=== PATIENT | male | born 1970 | race Caucasian/White ===

== ENCOUNTER 2017-03-17 20:37 | Emergency (ER) | payer OTHER ==
--- NOTE | 2017-03-17 22:00 | DIAGNOSTIC IMAGING REPORT ---
PROCEDURE: XR CHEST 1 VIEW INDICATION: CHEST PAIN TECHNIQUE: Single view chest. 2111 hours COMPARISON: None. FINDINGS: The cardiomediastinal contour and central vasculature are normal. Retrocardiac density. No visible effusion or pneumothorax. The osseous structures are intact. IMPRESSION: 1. Suspected retrocardiac density. Consider PA and lateral radiograph when the patient is able.
--- NOTE | 2017-03-17 23:54 | ED NURSING NOTES ---
Clinical Report - Nurses [facility] [address] [place] [address] 03/17/2017 20:37 Patient: LYDIA KELLOGG TRIAGE Triage time 20:30. Acuity: LEVEL 3. Chief Complaint: CHEST PAIN. Alert. No acute distress. --20:45 Lucy Wasserman R.N. 20:30 03/17/17. BP: 165/92. HR: 109. RR: 20. O2 saturation: 100% on room air. Temp: 98.1 F. --20:45 Lucy Wasserman R.N. 20:30 03/17/17. BP: 165/92. HR: 109. RR: 20. O2 saturation: 100% on room air. Temp: 98.1 F. --20:45 Lucy Wasserman R.N. Weight: 86.1 kg stated. Height/Length: 70 inches Per Patient. BMI: 27.2. --20:42 Lucy Wasserman R.N. Medications Simvastatin Oral 40 mg, daily. --20:32 Lucy Wasserman R.N. Asa 81mg day. --20:32 Lucy Wasserman R.N. NIFEdipine Oral 30 mg, daily. --20:33 Lucy Wasserman R.N. Omeprazole Oral 20 mg, daily. --20:33 Lucy Wasserman R.N. Medication/allergy information source: the patient and patient's family. --20:45 Lucy Wasserman R.N. Allergies No Known Drug Allergy. --20:34 Lucy Wasserman R.N. History Arrived by private vehicle, and accompanied by family. Primary physician ([facility]). Onset. (2 hours ago). No difficulty breathing, sweating episodes or nausea. Treatment SOUND PERSON: None. PAST MEDICAL HX: Immunizations: status is unknown. SOCIAL HX: Occasional alcohol use. No drug use. FALL RISK ASSESSMENT: Fall risk assessment completed. No fall risk identified. NUTRITIONAL RISK ASSESSMENT: The nutritional risk assessment revealed no deficiencies. FUNCTIONAL ASSESSMENT: Functional assessment: no impairments noted. LEARNING NEEDS ASSESSMENT: The learning needs assessment revealed no barriers. SKIN INTEGRITY ASSESSMENT: Skin integrity risk assessment completed. No skin integrity risk identified. --20:45 Lucy Wasserman R.N. PROBLEMS: Nephrolithiasis. Hypertension. Hypercholesterolemia. Chest Pain. --20:35 Lucy Wasserman R.N. Ureterolithiasis. --20:44 Lucy Wasserman R.N. ADDITIONAL SURGERIES: Kidney stone retrival . --20:44 Lucy Wasserman R.N. Interventions ID band on patient. To room. --20:45 Lucy Wasserman R.N. PHYSICAL ASSESSMENT To room via wheelchair. Patient gowned. GENERAL / NEURO / PSYCH: Alert. Oriented X 4. Appears in pain and anxious. HEENT: Mucous membranes are pink. RESPIRATORY: Respirations not labored. CVS: Cardiac rhythm: sinus tachycardia. GI / : Abdomen nontender. EXTREMITIES: No lower extremity edema. SKIN: Skin is warm and dry. Normal skin turgor. Skin is non-tender. --20:46 Lucy Wasserman R.N. NURSING PROGRESS NOTES Oxygen administered by nasal cannula at 2 liters. vice president of instruction, pulse oximeter and NIBP monitor placed on patient; prison guard- Lead II. Patient gowned. Head of bed elevated. Two patient identifiers checked. Call light placed in reach. Side rails up x 2. Bed placed in lowest position. Brakes of bed on. Patient ready for evaluation- chart flagged. --20:46 Lucy Wasserman R.N. <<STRICKEN ENTRY-- EKG time: (). EKG was performed by a nurse and shown to the ED physician. --20:46 Lucy Wasserman R.N. --END STRIKE>> Correction --20:47 Lucy Wasserman R.N. EKG time: (2036). EKG was performed by a nurse and shown to the ED physician. --20:47 Lucy Wasserman R.N. 20:30 03/17/2017 Site #1 started via IV in the right antecubital space with an 18g angiocath, with aseptic technique and good blood return; one attempt. Blood drawn: rainbow set. Labeled in the presence of the patient and sent to the lab. Saline lock flushed with 10 mL saline. --21:11 Lucy Wasserman R.N. 21:00 03/17/2017 mylanta * PO 30 --21:12 Lucy Wasserman R.N. 21:00 03/17/2017 lido viscous * PO 15mg --21:13 Lucy Wasserman R.N. 21:04 03/17/2017 Started bag #1 1000 mL IV Fluids IV NS (Saline); at 1000 mL/hr over 1 hour(s) via site #1 via IV pump. Allergies verified and confirmed 5 rights. IV patency established. IV site checked: no pain, redness, or swelling. IV flushed thoroughly pre- and post-medication administration. --21:14 Lucy Wasserman R.N. 21:03/17/2017 Morphine IVP 2 mg given over 1 minute(s) via site #1. Allergies verified, confirmed 5 rights and sedative warning given to the patient. IV patency established. IV site checked: no pain, redness, or swelling. IV flushed thoroughly pre- and post-medication administration. IVP given by RN. --21:15 Lucy Wasserman R.N. Spouse at bedside. --21:15 Lucy Wasserman R.N. Patient ID band checked for patient name: patient confirmed. Instructions provided to collect clean catch urine and patient verbalized understanding. Clean catch urine collected with return of yellow-colored clear urine; odor is normal; sample sent to lab for urinalysis and culture. Specimen labeled in the presence of the patient (Voided 600ml urine, using a urinal). --21:35 Lucy Wasserman R.N. 22:17 03/17/2017 IV Fluids IV NS Bag Change: bag #1 infused. Total amount infused: 1000. STARTED bag #2 (1000 mL) at 1000 mL/hr via IV pump. Confirmed 5 rights. IV patency established. IV site checked: no pain, redness, or swelling. IV flushed thoroughly. --22:17 Lucy Wasserman R.N. Care transferred and report given (Soha GURROLA). --23:27 Noelle Cedillo R.N. DISPOSITION / DISCHARGE 00:27 03/18/2017 IV Fluids IV NS Discontinued: bag #1 completed upon discharge. Total amount infused: 1000 mL. IV patency established. IV site checked: no pain, redness, or swelling. IV flushed thoroughly. --00:27 Soha Hastings R.N. 00:28 03/18/2017 Site #1 removed upon discharge. Catheter intact. Manual pressure and bandage applied. --00:28 Soha Hastings R.N. Departure time: 0027. Condition at departure: improved and stable. No learning barriers present. Discharge instructions provided and reviewed with the patient and spouse. Patient verbalized understanding. Written instructions provided in [place]. The patient was discharged home and accompanied by spouse. He left the Emergency Department ambulatory and via private vehicle. Spouse driving. --00:29 Soha Hastings R.N. 00:27 03/18/17. BP: 133/86 taken on the left arm, while lying. HR: 113 (regular and tachycardic). RR: 18 (regular and unlabored). O2 saturation: 100%. Temp: deferred. Pain level now: 0/10. --00:29 Soha Hastings R.N. Locked/Released at 03/18/2017 0:29 by Soha Hastings R.N.
--- NOTE | 2017-03-17 23:54 | ED NURSING NOTES ---
Clinical Report - Nurses [facility] [address] [place] [address] 03/17/2017 20:37 Patient: LYDIA KELLOGG TRIAGE Triage time 20:30. Acuity: LEVEL 3. Chief Complaint: CHEST PAIN. Alert. No acute distress. --20:45 Lucy Wasserman R.N. 20:30 03/17/17. BP: 165/92. HR: 109. RR: 20. O2 saturation: 100% on room air. Temp: 98.1 F. --20:45 Lucy Wasserman R.N. 20:30 03/17/17. BP: 165/92. HR: 109. RR: 20. O2 saturation: 100% on room air. Temp: 98.1 F. --20:45 Lucy Wasserman R.N. Weight: 86.1 kg stated. Height/Length: 70 inches Per Patient. BMI: 27.2. --20:42 Lucy Wasserman R.N. Medications Simvastatin Oral 40 mg, daily. --20:32 Lucy Wasserman R.N. Asa 81mg day. --20:32 Lucy Wasserman R.N. NIFEdipine Oral 30 mg, daily. --20:33 Lucy Wasserman R.N. Omeprazole Oral 20 mg, daily. --20:33 Lucy Wasserman R.N. Medication/allergy information source: the patient and patient's family. --20:45 Lucy Wasserman R.N. Allergies No Known Drug Allergy. --20:34 Lucy Wasserman R.N. History Arrived by private vehicle, and accompanied by family. Primary physician ([facility]). Onset. (2 hours ago). No difficulty breathing, sweating episodes or nausea. Treatment TRACK FITTER: None. PAST MEDICAL HX: Immunizations: status is unknown. SOCIAL HX: Occasional alcohol use. No drug use. FALL RISK ASSESSMENT: Fall risk assessment completed. No fall risk identified. NUTRITIONAL RISK ASSESSMENT: The nutritional risk assessment revealed no deficiencies. FUNCTIONAL ASSESSMENT: Functional assessment: no impairments noted. LEARNING NEEDS ASSESSMENT: The learning needs assessment revealed no barriers. SKIN INTEGRITY ASSESSMENT: Skin integrity risk assessment completed. No skin integrity risk identified. --20:45 Lucy Wasserman R.N. PROBLEMS: Nephrolithiasis. Hypertension. Hypercholesterolemia. Chest Pain. --20:35 Lucy Wasserman R.N. Ureterolithiasis. --20:44 Lucy Wasserman R.N. ADDITIONAL SURGERIES: Kidney stone retrival . --20:44 Lucy Wasserman R.N. Interventions ID band on patient. To room. --20:45 Lucy Wasserman R.N. PHYSICAL ASSESSMENT To room via wheelchair. Patient gowned. GENERAL / NEURO / PSYCH: Alert. Oriented X 4. Appears in pain and anxious. HEENT: Mucous membranes are pink. RESPIRATORY: Respirations not labored. CVS: Cardiac rhythm: sinus tachycardia. GI / : Abdomen nontender. EXTREMITIES: No lower extremity edema. SKIN: Skin is warm and dry. Normal skin turgor. Skin is non-tender. --20:46 Lucy Wasserman R.N. NURSING PROGRESS NOTES Oxygen administered by nasal cannula at 2 liters. width stripper, pulse oximeter and NIBP monitor placed on patient; cardiac exercise physiologist- Lead II. Patient gowned. Head of bed elevated. Two patient identifiers checked. Call light placed in reach. Side rails up x 2. Bed placed in lowest position. Brakes of bed on. Patient ready for evaluation- chart flagged. --20:46 Lucy Wasserman R.N. <<STRICKEN ENTRY-- EKG time: (). EKG was performed by a nurse and shown to the ED physician. --20:46 Lucy Wasserman R.N. --END STRIKE>> Correction --20:47 Lucy Wasserman R.N. EKG time: (2036). EKG was performed by a nurse and shown to the ED physician. --20:47 Lucy Wasserman R.N. 20:30 03/17/2017 Site #1 started via IV in the right antecubital space with an 18g angiocath, with aseptic technique and good blood return; one attempt. Blood drawn: rainbow set. Labeled in the presence of the patient and sent to the lab. Saline lock flushed with 10 mL saline. --21:11 Lucy Wasserman R.N. 21:00 03/17/2017 mylanta * PO 30 --21:12 Lucy Wasserman R.N. 21:00 03/17/2017 lido viscous * PO 15mg --21:13 Lucy Wasserman R.N. 21:04 03/17/2017 Started bag #1 1000 mL IV Fluids IV NS (Saline); at 1000 mL/hr over 1 hour(s) via site #1 via IV pump. Allergies verified and confirmed 5 rights. IV patency established. IV site checked: no pain, redness, or swelling. IV flushed thoroughly pre- and post-medication administration. --21:14 Lucy Wasserman R.N. 21:03/17/2017 Morphine IVP 2 mg given over 1 minute(s) via site #1. Allergies verified, confirmed 5 rights and sedative warning given to the patient. IV patency established. IV site checked: no pain, redness, or swelling. IV flushed thoroughly pre- and post-medication administration. IVP given by RN. --21:15 Lucy Wasserman R.N. Spouse at bedside. --21:15 Lucy Wasserman R.N. Patient ID band checked for patient name: patient confirmed. Instructions provided to collect clean catch urine and patient verbalized understanding. Clean catch urine collected with return of yellow-colored clear urine; odor is normal; sample sent to lab for urinalysis and culture. Specimen labeled in the presence of the patient (Voided 600ml urine, using a urinal). --21:35 Lucy Wasserman R.N. 22:17 03/17/2017 IV Fluids IV NS Bag Change: bag #1 infused. Total amount infused: 1000. STARTED bag #2 (1000 mL) at 1000 mL/hr via IV pump. Confirmed 5 rights. IV patency established. IV site checked: no pain, redness, or swelling. IV flushed thoroughly. --22:17 Lucy Wasserman R.N. Care transferred and report given (Soha GURROLA). --23:27 Noelle Cedillo R.N. DISPOSITION / DISCHARGE 00:27 03/18/2017 IV Fluids IV NS Discontinued: bag #1 completed upon discharge. Total amount infused: 1000 mL. IV patency established. IV site checked: no pain, redness, or swelling. IV flushed thoroughly. --00:27 Soha Hastings R.N. 00:28 03/18/2017 Site #1 removed upon discharge. Catheter intact. Manual pressure and bandage applied. --00:28 Soha Hastings R.N. Departure time: 0027. Condition at departure: improved and stable. No learning barriers present. Discharge instructions provided and reviewed with the patient and spouse. Patient verbalized understanding. Written instructions provided in [place]. The patient was discharged home and accompanied by spouse. He left the Emergency Department ambulatory and via private vehicle. Spouse driving. --00:29 Soha Hastings R.N. 00:27 03/18/17. BP: 133/86 taken on the left arm, while lying. HR: 113 (regular and tachycardic). RR: 18 (regular and unlabored). O2 saturation: 100%. Temp: deferred. Pain level now: 0/10. --00:29 Soha Hastings R.N. Locked/Released at 03/18/2017 0:29 by Soha Hastings R.N.
--- NOTE | 2017-03-17 23:54 | ED CLINICAL REPORT ---
Clinical Report - Physicians/Mid Levels [facility] [address] [place] [place] [address] 03/17/2017 20:37 Patient: LYDIA KELLOGG Time Seen: 2046. Arrived- By private vehicle. Historian- patient and spouse. HISTORY OF PRESENT ILLNESS Chief Complaint: CHEST PAIN. At its maximum, severity described as moderate. When seen in the E.D., severity described as moderate. Modifying factors- (worsened with deep breath or moving of the left arm). Not relieved by anything. It is described as sharp and it is described as located in the left chest area. No radiation. This started today 2 hours ago and is still present (unchanged). It was abrupt in onset and has been constant but is not gone now. Onset during moderate exertion. No nausea, vomiting, difficulty breathing or diaphoresis. (started while working out in the yard.). No additional chest pain. (no recent injury, surgery, trauma, hx of DVT, PE. no leg swelling.). Similar symptoms previously: None. Recent medical care: Not recently seen/assessed. REVIEW OF SYSTEMS The patient has had skin rash. All systems otherwise negative, except as recorded above. PAST HISTORY See nurses notes. Denies the following risk factors for DVT/PE - history of DVT and pulmonary embolism, recent surgery, recent CO and congestive heart failure. Denies the following risk factors for DVT/PE - cancer, clotting disorder, estrogens, obesity and immobility. Denies the following risk factors for DVT/PE - advanced in age and vena cava filter. SOCIAL HISTORY Never smoker. Occasional alcohol use. No drug use. No recent travel. Is a local resident. FAMILY HISTORY No history of heart disease. ADDITIONAL NOTES The nursing notes have been reviewed. PHYSICAL EXAM Vital Signs: 03/17/2017 20:30 BP: 165/92. HR: 109. RR: 20. O2 saturation: 100%. Temp: 98.1 F. Hypertensive. Oxygen saturation normal. Appearance: Alert. Oriented X3. No acute distress. Eyes: Pupils equal, round and reactive to light. Eyes normal inspection. ENT: Ears normal. Nose normal. Pharynx normal. Neck: Normal inspection. Neck supple. CVS: Normal heart rate and rhythm. Heart sounds normal. Pulses normal. Respiratory: No respiratory distress. Breath sounds normal. Chest nontender. No rales, rhonchi or wheezes. Abdomen: Soft and nontender. Bowel sounds normal. Back: Normal external inspection. Skin: Skin warm and dry. Normal skin color. No rash. Normal skin turgor. Extremities: Extremities exhibit normal ROM. No lower extremity edema. Neuro: Oriented X 3. No motor deficit. No sensory deficit. LABS, X-RAYS, AND EKG EKG: Tachycardia. Normal P waves. Normal JUAN. Normal QRS complex. Normal axis. Normal ST and T waves, QT and QTc. The study has been interpreted contemporaneously. The study has been independently viewed by me. The EKG appears to be a good tracing. Chest X-ray: No acute disease. Normal lung markings present. Normal heart size. Mediastinum normal. Great vessels normal. Soft tissues normal. No infiltrate. No fracture. No bony lesion present. Views: AP (portable). Technique: good. The X-rays were independently viewed by me and interpreted contemporaneously by me. Laboratory Tests: CBC w Diff: (LION: 03/17/2017 21:00) ( MsgRcvd 03/17/2017 21:34) Final results Test Result Flag Units (Reference) WHITE BLOOD COUNT 8.9 K/uL (4.5-11.5) RED BLOOD COUNT 5.53 M/uL (4.50-5.90) HEMOGLOBIN 15.7 gm/dL (13.5-17.5) HEMATOCRIT 46.8 % (41.0-53.0) MEAN CELL VOLUME 85 fL (80-100) MEAN CORPUSCULAR HGB 28 pg (26-34) MEAN CORPUSCULAR HGB CONC 34 g/dL (31-37) RED CELL DISTRIBUTION WIDTH 13.1 % (11.6-14.8) PLATELET COUNT 300 K/uL (150-400) NEUTROPHIL % 50.6 % (50-75) LYMPH % 39.4 % (25-40) MONO % 7.8 % (3-14) EOSINOPHIL % 1.7 % (0-4) BASOPHIL % 0.5 % (0-2) PT with INR: (LION: 03/17/2017 21:00) ( [facility] 03/17/2017 21:44) Final results Test Result Flag Units (Reference) INR 0.9 (0.8-1.2) Low Intensity Therapy: INR 1.5-2.0 PT range 18.5-23.1Mod.Intensity Therapy: INR 2.0-3.0 PT range 23.1-31.5High Intensity Therapy: INR 2.5-3.5 PT range 27.4-35.5High Intensity Therapy 2: INR 3.0-4.0 PT range 31.5-39.3 D-DIMER QUANTITATIVE 0.34 ug/mLFEU (0.27-0.52) The primary value of this quantitative assay relates toits negative predictive value (i.e. exclusion) of pulmonaryembolism/deep vein thrombosis/DIC.Elevated levels of d-dimer may also occur with:, age, cancer, inflammation, liver disease,post-op, infection, hematoma, coronary disease, peripheralarteriopathy, bleeding disorders and thrombolytic treatment.Results should be correlated with other clinical andradiological data.Testing Methodology: Latex Immunoassay Troponin-I: (LION: 03/17/2017 23:00) ( [facility] 03/17/2017 23:39) Final results Test Result Flag Units (Reference) TROPONIN I <0.05 L ng/mL (0.00-1.5) TROPONIN REFERENCE RANGE:<0.1 NEGATIVE0.1-1.5 INDETERMINANT>1.5 POSITIVE Troponin-I: (LION: 03/17/2017 21:00) ( [facility] 03/17/2017 22:11) Final results Test Result Flag Units (Reference) TROPONIN I <0.05 L ng/mL (0.00-1.5) TROPONIN REFERENCE RANGE:<0.1 NEGATIVE0.1-1.5 INDETERMINANT>1.5 POSITIVE Ethyl Alcohol: (LION: 03/17/2017 21:00) ( [facility] 03/17/2017 22:27) Final results Test Result Flag Units (Reference) ETHYL ALCOHOL 63 H mg/dL (3-10) CMP: (LION: 03/17/2017 21:00) ( MsgRcvd 03/17/2017 21:56) Final results Test Result Flag Units (Reference) GLUCOSE 100 mg/dL (70-110) BUN 10 mg/dL (7-18) CREATININE 0.9 mg/dL (0.6-1.3) Estimated GFR >60 mL/min Estimated GFR- >60 mL/min Note: Persistent reduction over 3 months in eGFR<60 mL/min/1.73 m2 defines CKD. Patients with eGFR values>=60 mL/min/1.73 m2 may also have CKD if evidence ofpersistent proteinuria. Additional information may be foundat www.kidney.org. SODIUM 146 H mmol/L (136-145) POTASSIUM 3.5 mmol/L (3.5-5.1) CHLORIDE 105 mmol/L (98-107) CARBON DIOXIDE 27 mmol/L (21-32) CALCIUM 9.4 mg/dL (8.5-10.1) TOTAL PROTEIN 8.5 H g/dL (6.4-8.2) ALBUMIN 4.2 g/dL (3.3-5.0) BILIRUBIN, TOTAL 0.4 mg/dL (0.0-1.0) ALKALINE PHOSPHATASE 82 U/L (46-116) AST (SGOT) 29 U/L (15-37) ALT (SGPT) 49 U/L (12-78) . Pulse Oximetry: 03/17/2017 20:30 O2 saturation: 100%. (FIO2 - room air). Interpretation: normal. PROGRESS AND PROCEDURES Course of Care: the patient is a pleasant 46-year-old male presenting for evaluation of chest pain. Patient has atypical presentation of chest pain at this time. Patient has reproducible pain on examination. Patient does not have any significant risk factors for cardiac disease at this time. I was able to speak to the patient's at bedside who later had pulled me aside and stated that the patient has been drinking more than he had initially reported. Patient states that he had 1 drink earlier however the patient's spouse is skeptical of this report. She states that the patient was a recovering alcoholic and has been clean and sober for the past several years however had a recent relapse. The spouse states that this is happened before in the past when he started drinking heavily. Initial workup has been started. Patient is not a PE RC negative. D-dimer has been ordered. Patient will be evaluated with chest x-ray, and laboratory studies including troponin. Because the patient is not forthcoming with the amount of alcohol consumption per the spouse, we'll order a alcohol level. Patient is agreeable to the treatment plan. Patient's workup is currently pending. Patient will be signed over to the oncoming doctor at the change of shift. Vincent note: Patient was signed out to me pending initial troponin and repeat troponin. Patient was without further chest pain in the emergency department. Both troponins were negative. I did discuss with the patient that there is no evidence of a cardiac source for his chest pain at this time; however, the patient has likely irritated his esophagus and stomach from his heavy drinking and this may indeed be part of the reason he is having the chest pain. He is strongly advised to stop abusing alcohol, and to get help with this as needed. Patient's was present to receive instructions as well, and patient seems stable for discharge home. Patient and spouse counseled in person regarding the patient's stable condition, test results, diagnosis and need for follow-up. Concerns were addressed. Old medical records reviewed. Disposition: Discharged. Condition: stable. CLINICAL IMPRESSION Chest pain. Acute esophagitis associated with gastro-esophageal reflux disease (GERD) (secondary to alcohol abuse). Substance abuse problems: abuse of alcohol. Acute alcoholic gastritis INSTRUCTIONS (Your labs, EKG, and chest x-ray show no evidence of a serious cause of your pain. You need to stop drinking alcohol, as this is causing damage to your body in other ways, and is likely the cause of irritation in your stomach and esophagus, which have caused your pain.). Warnings: GENERAL WARNINGS: Return or contact your physician immediately if your condition worsens or changes unexpectedly, if not improving as expected, or if other problems arise. Your Current Medications: CONTINUE TAKING THE FOLLOWING MEDICATIONS: Asa 81mg day*. NIFEdipine Oral : 30 mg daily. Omeprazole Oral : 20 mg daily. Simvastatin Oral : 40 mg daily. Follow-up: Follow up with your doctor as needed. Understanding of the discharge instructions verbalized by patient and family. (Electronically signed by Luz Kaur MD 03/18/2017 9:36)
--- NOTE | 2017-03-17 23:55 | ED ORDER SUMMARY ---
..... Patient: LYDIA KELLOGG OrderSheet [facility] VisitID: [id number] [address] [place] [address] 46y, M Registration Date/Time: 03/17/2017 ORDER SHEET Weight: 86.1 kg (stated) Allergies: No Known Drug Allergy GENERAL ORDERS: Chest 1V Urgent (20:55 03/17/2017 Rosemarie Ponce) (Ack 20:59 AMcQuoid ER Tech1) (21:10 SRoberts R.N.) (21:11 RFay) Pole Sander Operator (Continuous) (CP) (20:55 03/17/2017 Rosemarie Ponce) (Ack 20:59 AMcQuoid ER Tech1) (21:10 SRoberts R.N.) CBC w Diff Urgent (20:56 03/17/2017 Rosemarie Ponce) (Ack 20:59 AMcQuoid ER Tech1) (21:10 SRoberts R.N.) CMP Urgent (20:56 03/17/2017 Rosemarie Ponce) (Ack 20:59 AMcQuoid ER Tech1) (21:10 SRoberts R.N.) PT with INR Urgent (20:56 03/17/2017 Rosemarie Ponce) (Ack 20:59 AMcQuoid ER Tech1) (21:10 SRoberts R.N.) D-Dimer Urgent (20:56 03/17/2017 Rosemarie Ponce) (Ack 20:59 AMcQuoid ER Tech1) (21:10 SRoberts R.N.) Pulse oximeter (20:56 03/17/2017 Rosemarie Ponce) (Ack 20:59 AMcQuoid ER Tech1) (21:10 SRoberts R.N.) Ethyl Alcohol Urgent (20:57 03/17/2017 Rosemarie Ponce) (Ack 20:59 AMcQuoid ER Tech1) (21:10 SRoberts R.N.) Troponin-I Urgent (20:57 03/17/2017 Rosemarie Ponce) (Ack 20:59 AMcQuoid ER Tech1) (21:10 SRoberts R.N.) Troponin-I (draw 2 hours after first lab draw) Urgent (21:55 03/17/2017 Rosemarie Ponce) (Ack 21:58 AMcQuoid ER Tech1) (23:24 Gertrudis Mahajan) MEDICATION ORDERS: GI Cocktail WHITE PO 30 mL (NOW) (20:56 03/17/2017 Rosemarie Ponce) (21:12 Aury R.N.) IV FLUIDS: IV NS : initial bolus 1000 mL (1000 mL/hr), then none - for X1 (NOW) (20:55 03/17/2017 Rosemarie Ponce) (21:14 Aury Mackenzie.NEliezer) Morphine IV 2 mg (HIGH ALERT MEDICATION, NOW) (20:56 03/17/2017 Rosemarie Ponce) (21:15 Aury Mackenzie.N.) ORDER SHEET NOTES: [Electronically signed by Soha Hastings R.N. (00:29 03/18/2017)] [Electronically signed by Luz Kaur MD (09:36 03/18/2017)] [Electronically locked/signed by Soha Hastings R.N. (00:29 03/18/2017)]
--- NOTE | 2017-03-17 23:55 | ED ORDER SUMMARY ---
..... Patient: LYDIA KELLOGG OrderSheet [facility] VisitID: [id number] [address] [place] [address] 46y, M Registration Date/Time: 03/17/2017 ORDER SHEET Weight: 86.1 kg (stated) Allergies: No Known Drug Allergy GENERAL ORDERS: Chest 1V Urgent (20:55 03/17/2017 Rosemarie Ponce) (Ack 20:59 AMcQuoid ER Tech1) (21:10 SRoberts R.N.) (21:11 RFay) Weapons Specialist (Continuous) (CP) (20:55 03/17/2017 Rosemarie Ponce) (Ack 20:59 AMcQuoid ER Tech1) (21:10 SRoberts R.N.) CBC w Diff Urgent (20:56 03/17/2017 Rosemarie Ponce) (Ack 20:59 AMcQuoid ER Tech1) (21:10 SRoberts R.N.) CMP Urgent (20:56 03/17/2017 Rosemarie Ponce) (Ack 20:59 AMcQuoid ER Tech1) (21:10 SRoberts R.N.) PT with INR Urgent (20:56 03/17/2017 Rosemarie Ponce) (Ack 20:59 AMcQuoid ER Tech1) (21:10 SRoberts R.N.) D-Dimer Urgent (20:56 03/17/2017 Rosemarie Ponce) (Ack 20:59 AMcQuoid ER Tech1) (21:10 SRoberts R.N.) Pulse oximeter (20:56 03/17/2017 Rosemarie Ponce) (Ack 20:59 AMcQuoid ER Tech1) (21:10 SRoberts R.N.) Ethyl Alcohol Urgent (20:57 03/17/2017 Rosemarie Ponce) (Ack 20:59 AMcQuoid ER Tech1) (21:10 SRoberts R.N.) Troponin-I Urgent (20:57 03/17/2017 Rosemarie Ponce) (Ack 20:59 AMcQuoid ER Tech1) (21:10 SRoberts R.N.) Troponin-I (draw 2 hours after first lab draw) Urgent (21:55 03/17/2017 Rosemarie Ponce) (Ack 21:58 AMcQuoid ER Tech1) (23:24 Gerturdis Mahajan) MEDICATION ORDERS: GI Cocktail WHITE PO 30 mL (NOW) (20:56 03/17/2017 Rosemarie Ponce) (21:12 Aury R.N.) IV FLUIDS: IV NS : initial bolus 1000 mL (1000 mL/hr), then none - for X1 (NOW) (20:55 03/17/2017 Rosemarie Ponce) (21:14 Aury Mackenzie.NEliezer) Morphine IV 2 mg (HIGH ALERT MEDICATION, NOW) (20:56 03/17/2017 Rosemarie Ponce) (21:15 Aury Mackenzie.N.) ORDER SHEET NOTES: [Electronically signed by Soha Hastings R.N. (00:29 03/18/2017)] [Electronically signed by Luz Kaur MD (09:36 03/18/2017)] [Electronically locked/signed by Soha Hastings R.N. (00:29 03/18/2017)]
--- NOTE | 2017-03-18 09:36 | ED DISCHARGE INSTRUCTIONS ---
Patient: LYDIA KELLOGG General Instructions [facility] VisitID: [id number] [address] [place] [address] 46y, M Registration Date/Time: 03/17/2017 Chest pain. Acute esophagitis associated with gastro-esophageal reflux disease (GERD) (secondary to alcohol abuse). Substance abuse problems: abuse of alcohol. Acute alcoholic gastritis INSTRUCTIONS (Your labs, EKG, and chest x-ray show no evidence of a serious cause of your pain. You need to stop drinking alcohol, as this is causing damage to your body in other ways, and is likely the cause of irritation in your stomach and esophagus, which have caused your pain.). Warnings: GENERAL WARNINGS: Return or contact your physician immediately if your condition worsens or changes unexpectedly, if not improving as expected, or if other problems arise. Your Current Medications: CONTINUE TAKING THE FOLLOWING MEDICATIONS: Asa 81mg day*. NIFEdipine Oral : 30 mg daily. Omeprazole Oral : 20 mg daily. Simvastatin Oral : 40 mg daily. Follow-up: Follow up with your doctor as needed. Understanding of the discharge instructions verbalized by patient and family. ADDITIONAL INFORMATION Chest Pain, Noncardiac Based on your visit today, the exact cause of your chest pain is not certain. Your condition does not seem serious and your pain does not appear to be coming from your heart. However, sometimes the signs of a serious problem take more time to appear. Therefore, please watch for the warning signs listed below. Home Care: Rest today and avoid strenuous activity. Take any prescribed medicine as directed. Follow Up with your doctor or this facility as instructed or if you do not start to feel better within 24 hours. Get Prompt Medical Attention if any of the following occur: A change in the type of pain: if it feels different, becomes more severe, lasts longer, or begins to spread into your shoulder, arm, neck, jaw or back Shortness of breath or increased pain with breathing Cough with dark colored sputum (phlegm) or blood Weakness, dizziness, or fainting Fever of 100.4F (38C) or higher, or as directed by your healthcare provider Swelling, pain or redness in one leg Alcohol Intoxication Alcohol intoxication occurs when you drink alcohol faster than your liver can remove it from your system. Alcohol intoxication affects your judgment and coordination. Very high blood alcohol levels can cause coma, very slow breathing and even . If you drink alcohol every day, this may gradually cause permanent damage to your liver, brain, heart, pancreas and other organs. Alcohol use during may cause permanent damage to the growing baby. Home Care: Do not drink any more alcohol. DO NOT DRIVE until all effects of the alcohol have worn off. Get lots of rest over the next few days. Drink plenty of water and other non-alcoholic liquids. Try to eat regular meals. If you have been drinking heavily on a daily basis, you may go through alcohol withdrawl. This is also called the shakes or DTs. The usual symptoms last 3 to 4 days and may include nervousness, shakiness, nausea, sweating or sleeplessness. During this time, it is best that you stay with family or friends who can help and support you. You can also admit yourself to a residential detox program. If your symptoms are severe, contact your doctor for medicines to help. Follow Up: If alcohol is causing a problem in your life, these and other organizations can help you: Alcoholics Anonymous offers support through a self-help fellowship. There are no dues or fees. See the Yellow Pages and call for time and place of meetings. www.aa.org [employer] offers support to families of alcohol users. 582.970.3778 www.al-anon.org [employer] [place] [employer] Alcohol[employer] 066-378-1561 www.ncadd.org There are also inpatient or residential alcohol detox programs. Check the Internet or phonebook Yellow Pages under Drug Abuse & Treatment Centers. Get Prompt Medical Attention if any of the following occur: there) Gastritis (Adult) Gastritis is an irritation of the stomach lining. It can be acute (recent) or chronic (lasting a long time). Gastritis can be caused by overuse of alcohol or anti-inflammatory medications (such as aspirin, ibuprofen, or prednisone). H pyloriinfection can also cause chronic gastritis. Gastritis can cause a dull ache or burning pain in the upper abdomen. Other symptoms include nausea, vomiting, loss of appetite, and belching or bloating. Blood in the vomit or stools (red or black) is a sign of bleeding in the stomach. This requires immediate medical attention. Tests for H pyloriare used to screen for bacterial infection. If no infection is found, gastritis can be treated by stopping the cause and treating with antacids plus an acid dagoberto medication. If H pylori infection is found, antibiotics will also be prescribed. Persons 55 years and older may undergo other tests before treatment is started. Two common tests are used to evaluate your symptoms. An upper GI series is an x-ray taken after you drink a chalky liquid called barium. This coats the stomach and allows the doctor to view any problems in the stomach on the x-ray. Another test is called endoscopy, during which a long thin tube called an endoscope is passed down your throat to the stomach. A camera at the end of the scope allows the doctor to view inside the stomach to check the cause of your symptoms. Home Care: Take the prescribed acid dagoberto medication for the full course of treatment even if you begin to feel better sooner. This medication can take up to several days to fully control your symptoms. If you cant afford the prescribed medication, you can try sxil-fwo-oenukqo acid blockers, such as Pepcid AC, Tagamet, Zantac, or Aciphex. If these do not relieve your symptoms, a stronger acid-dagoberto can be tried, such as Prilosec OTC. If you have been prescribed an antibiotic to treat H pyloriinfection, finish the full course of medication. Do so even if you begin to feel better sooner. If you stop the medication too soon, the infection can return and be harder to treat. You can use antacids, such as Tums, Rolaids, Mylanta, or Maalox, for pain. This will be useful the first few days after starting acid blockers when the blockers havent started working yet. Follow the directions on the label. Liquid antacids may work better than tablets. Note that antacids can interfere with absorption of certain medications. Specifically, do not take Tagamet (cimetidine), Zantac (ranitidine), or Carafate (sucralfate) within 1 hour of taking an antacid. Talk with your pharmacist if you have any questions. Symptoms of gastritis can be worsened by certain foods. Limit or avoid fatty, fried, and spicy foods, as well as coffee, chocolate, mint, and foods with high acid content such as tomatoes and citrus fruit and juices (orange, grapefruit, lemon). Avoid alcohol, caffeine, and tobacco, which can delay healing. Avoid aspirin and anti-inflammatory medications such as ibuprofen (Advil, Motrin) and naproxen (Naprosyn, Aleve). Acetaminophen (Tylenol) is safe to use. Do not take more than the amount listed on the label. Follow Up with your doctor, or as advised by our staff. Further testing may be needed. If you do not improve over the next 4 days, contact your doctor. If you had an x-ray, CT scan, or ECG (electrocardiogram), it will be reviewed by a specialist. Youll be notified of any new findings that affect your care. Get Prompt Medical Attention if any of the following occur: Stomach pain gets worse or moves to the lower right abdomen (appendix area) Chest pain appears or gets worse, or spreads to the back, neck, shoulder, or arm Frequent vomiting (cant keep down liquids) Blood in the stool or vomit (red or black in color) Feeling weak or dizzy, fainting, or trouble breathing Fever of 100.4F (38C) or higher, or as directed by your healthcare provider GERD (Adult) The esophagus is a tube that carries food from the mouth to the stomach. A valve at the lower end of the esophagus prevents stomach acid from flowing upward. If this valve does not work properly, acid from the stomach enters the esophagus. If this occurs over and over, the acid will injure the lining of the esophagus. This condition is called GERD (gastroesophageal reflux disease) or acid reflux. When stomach acid flows upward into the esophagus, it causes burning, pressure or sharp pain in the upper abdomen or mid to lower chest. The pain can spread to the neck, back, or shoulder, similar to heart pain (angina). There may be belching, an acid taste in the back of the throat, chronic cough, or sore throat or hoarseness. GERD symptoms often occur during the day after a big meal, but it can also occur at night when lying down. Smoking,as well as drinking alcohol, increases the risk of GERD. GERD is a chronic condition. Once it begins, it is often lifelong. Treatment includes changes in eating habits and the use of acid dagoberto medications to decrease the amount of acid in the stomach. Symptoms often improve with treatment, but if treatment is stopped, the symptoms usually return after a few months. So most persons with GERD will need to continue treatment. Home Care: Take the prescribed acid dagoberto medication for the full course of treatment even if you begin to feel better sooner. This medication can take up to several days to fully control your symptoms. If you cant afford the prescribed medication, you can try coen-uti-cvbiwut acid blockers, such as Pepcid AC, Tagamet, Zantac, or Aciphex. If these do not relieve your symptoms, a stronger acid-dagoberto can be tried, such as Prilosec OTC. You can use antacids, such as Tums, Rolaids, Mylanta, or Maalox, for pain. This will be useful the first few days after starting acid blockers when the blockers havent started working yet. Follow the directions on the label. Liquid antacids may work better than tablets. Note that antacids can interfere with absorption of certain medications. Specifically, do not take Tagamet (cimetidine), Zantac (ranitidine), or Carafate (sucralfate) within 1 hour of taking an antacid. Talk with your pharmacist if you have any questions. Limit or avoid fatty, fried, and spicy foods, as well as coffee, chocolate, mint, and foods with high acid content such as tomatoes and citrus fruit and juices (orange, grapefruit, lemon). Avoid alcohol and smoking. Dont eat large meals, especially at night. Frequent, smaller meals are best. Do not lie down right after eating. And dont eat anything 3 hours before going to bed. If you are overweight, losing weight will reduce symptoms. Women should not wear corsets or girdles because this increases pressure on the stomach and worsens reflux. If your symptoms occur during sleep, use a foam wedge to elevate your upper body (not just your head.) Or, place 4" blocks under the head of your bed. Follow Up with your doctor or as advised by our staff. Further testing may be needed. If you do not begin to improve over the next 4 days, contact your doctor. If you had an x-ray, CT scan, or ECG (electrocardiogram), it will be reviewed by a specialist. Youll be notified of any new findings that affect your care. Get Prompt Medical Attention if any of the following occur: Stomach pain gets worse or moves to the lower right abdomen (appendix area) Chest pain appears or gets worse, or spreads to the back, neck, shoulder, or arm Frequent vomiting (cant keep down liquids) Blood in the stool or vomit (red or black in color) Feeling weak or dizzy, fainting, or trouble breathing Fever of 100.4F (38C) or higher, or as directed by your healthcare provider You have been given the following additional information: Chest Pain, Noncardiac Alcohol Intoxication Gastritis (Adult) GERD (Adult) (Electronically signed by Luz Kaur MD 03/18/2017 9:36)
--- NOTE | 2017-03-18 09:36 | ED MED RECONCILIATION SUMMARY ---
Patient: LYDIA KELLOGG Medication Reconciliation Report [facility] VisitID: [id number] [address] [place] [address] 46y, M Registration Date/Time: 03/17/2017 Weight: 86.1 kg Height/Length: 70 in. BMI: 27.2 ALLERGIES: No Known Drug Allergy The patient's Home Medications are listed below: CONTINUE TAKING THE FOLLOWING MEDICATIONS: Asa 81mg day NIFEdipine Oral 30 mg, daily Omeprazole Oral 20 mg, daily Simvastatin Oral 40 mg, daily The source(s) of the original Home Medication information: patient's family member patient The following Medications were given to the patient in the Emergency Department: mylanta PO 30, administered: 03/17/2017 9:00:00 PM lido viscous PO 15mg, administered: 03/17/2017 9:00:00 PM IV NS IV Fluids bolus 0, then 1000 mL/hr, administered: 03/17/2017 9:04:00 PM Morphine [IVP] IVP 2 mg, administered: 03/17/2017 9:04:00 PM The following Medications were prescribed to the patient: None.
--- NOTE | 2017-03-18 09:36 | ED MED RECONCILIATION SUMMARY ---
Patient: LYDIA KELLOGG Medication Reconciliation Report [facility] VisitID: [id number] [address] [place] [address] 46y, M Registration Date/Time: 03/17/2017 Weight: 86.1 kg Height/Length: 70 in. BMI: 27.2 ALLERGIES: No Known Drug Allergy The patient's Home Medications are listed below: CONTINUE TAKING THE FOLLOWING MEDICATIONS: Asa 81mg day NIFEdipine Oral 30 mg, daily Omeprazole Oral 20 mg, daily Simvastatin Oral 40 mg, daily The source(s) of the original Home Medication information: patient's family member patient The following Medications were given to the patient in the Emergency Department: mylanta PO 30, administered: 03/17/2017 9:00:00 PM lido viscous PO 15mg, administered: 03/17/2017 9:00:00 PM IV NS IV Fluids bolus 0, then 1000 mL/hr, administered: 03/17/2017 9:04:00 PM Morphine [IVP] IVP 2 mg, administered: 03/17/2017 9:04:00 PM The following Medications were prescribed to the patient: None.
--- NOTE | 2017-03-18 09:36 | ED MAR SUMMARY ---
..... Medication Administration Record [facility] [address] [place] [address] Patient: LYDIA KELLOGG Visit ID: [id number] 46y, M Weight: 86.1 kg Height/Length: 70 in BMI: 27.2 ALLERGIES: No Known Drug Allergy Given 21:03/17/2017 Lucy Wasserman R.N. Medication Administered: mylanta *, Dose: 30 * PO. Medication Ordered: GI Cocktail WHITE PO 30 mL (NOW). Given 21:03/17/2017 Lucy Wasserman R.N. Medication Administered: lido viscous *, Dose: 15mg * PO. Medication Ordered: GI Cocktail WHITE PO 30 mL (NOW). Start 21:04 03/17/2017 Lucy Wasserman R.N., Stop 00:27 03/18/2017 Soha Hatsings R.N. Medication Administered: IV NS (SALINE), Dose: IV Fluids over 1 hour(s), Rate: 1000 mL/hr, Dispensed: 1000 mL bag, Site: #1 right AC. Medication Ordered: IV NS : initial bolus 1000 mL (1000 mL/hr), then none - for X1 (NOW). Given 21:03/17/2017 Lucy Wasserman R.N. Medication Administered: MORPHINE [IVP], Dose: 2 mg IVP over 1 minute(s), Site: #1 right AC. Medication Ordered: Morphine IV 2 mg (HIGH ALERT MEDICATION, NOW).
--- NOTE | 2017-03-18 09:36 | ED MAR SUMMARY ---
..... Medication Administration Record [facility] [address] [place] [address] Patient: LYDIA KELLOGG Visit ID: [id number] 46y, M Weight: 86.1 kg Height/Length: 70 in BMI: 27.2 ALLERGIES: No Known Drug Allergy Given 21:03/17/2017 Lucy Wasserman R.N. Medication Administered: mylanta *, Dose: 30 * PO. Medication Ordered: GI Cocktail WHITE PO 30 mL (NOW). Given 21:03/17/2017 Lucy Wasserman R.N. Medication Administered: lido viscous *, Dose: 15mg * PO. Medication Ordered: GI Cocktail WHITE PO 30 mL (NOW). Start 21:04 03/17/2017 Lucy Wasserman R.N., Stop 00:27 03/18/2017 Soha Hastings R.N. Medication Administered: IV NS (SALINE), Dose: IV Fluids over 1 hour(s), Rate: 1000 mL/hr, Dispensed: 1000 mL bag, Site: #1 right AC. Medication Ordered: IV NS : initial bolus 1000 mL (1000 mL/hr), then none - for X1 (NOW). Given 21:03/17/2017 Lucy Wasserman R.N. Medication Administered: MORPHINE [IVP], Dose: 2 mg IVP over 1 minute(s), Site: #1 right AC. Medication Ordered: Morphine IV 2 mg (HIGH ALERT MEDICATION, NOW).
== END 2017-03-18 00:27 | disposition home or self-care (01) ==
LOC: ED SRH 20:37
DX: R07.9 Chest pain, unspecified (principal); K21.0 Gastro-esophageal reflux disease with esophagitis; F10.10 Alcohol abuse, uncomplicated; K29.20 Alcoholic gastritis without bleeding
CPT/HCPCS: 90100; 90616; 91556; 92010; 94060; 95059